=== PATIENT | female | born 1960 | race Caucasian/White ===

== ENCOUNTER 2017-04-12 16:43 | Inpatient (IN) | payer BC ==
[2017-04-12] MEDS ORDERED: ONDANSETRON INJ 4 MG/2 ML VIAL ONE (17:00)
--- NOTE | 2017-04-12 17:08 | ED.PDOC ---
History of Present Illness - General Chief Complaint: Skin/Abrasion/Tear Stated Complaint: left arm redness/swelling Time Seen by Provider: 04/12/17 17:02 Source: patient, RN notes reviewed, Vital Signs reviewed Additional Information: Pt reports sudden onset of fever, left arm redness and swelling today. She had a modified radical mastectomy in 2009 of the left breast and left axillary lymph nodes. She reports a similar episode requiring IV abx for 3 days in 2010. Pt reports N/V she thinks secondary to pain/discomfort. 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 Improving Factors: nothing Worsening Factors: movement Associated Symptoms: fever/chills, nausea/vomiting Allergies/Adverse Reactions: Allergies NO KNOWN ALLERGY Allergy (Verified 04/12/17 17:01) Home Medications: Ambulatory Orders Buspirone HCl 10 mg PO BID 04/12/17 Cholecalciferol [Vitamin D] 5,000 unit PO DAILY 04/12/17 Escitalopram Oxalate [Lexapro] 30 mg PO DAILY 04/12/17 Esomeprazole Magnesium [Nexium] 40 mg PO DAILY 04/12/17 Gabapentin [Neurontin] 600 mg PO TID 04/12/17 Hydrochlorothiazide 12.5 mg PO DAILY 04/12/17 Review of Systems - Review of Systems Constitutional: States: chills, fever EENTM: States: no symptoms reported Respiratory: States: no symptoms reported Cardiology: States: no symptoms reported Gastrointestinal/Abdominal: States: no symptoms reported Genitourinary: States: no symptoms reported Musculoskeletal: States: see HPI - Left arm redness and swelling. Skin: States: see HPI - Left arm redness and swelling Neurological: States: no symptoms reported Endocrine: States: no symptoms reported Hematologic/Lymphatic: States: no symptoms reported Past Medical History (General) - Patient Medical History Hx Stroke: No Hx Congestive Heart Failure: No Hx Diabetes: No Hx Gastroesophageal Reflux: Yes Hx Cancer: Yes - Breast Surgical History: other - Left Modified Radical Mastectomy in 2009 - Vaccination History Hx Influenza Vaccination: Yes - Social History Hx Tobacco Use: No - Female History Patient is a Female of Child Bearing Age (10 -59 yrs old): No Family Medical History - Family History Mother Family History: Unknown Living Status: Unknown Physical Exam - Physical Exam General Appearance: Alert, Anxious, No apparent distress, Obese Eye Exam: bilateral normal Ears, Nose, Throat: hearing grossly normal, normal ENT inspection, normal pharynx Neck: non-tender, full range of motion, supple Respiratory: no respiratory distress Cardiovascular/Chest: regular rate, rhythm Gastrointestinal/Abdominal: non tender, soft Extremity: swelling - and erythema and warmth of left arm with some limited ability to flex at elbow and wrist 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 She was Rx'd Cefepime IV for infection and Fentanyl 50 mcg IV x1 for pain. Also, Pt Rx'd 1 Liter NS and Zofran 4 mg IV x 1. Influenza swab obtained given c/o SAENZ along with fever. If flu positive will add Tamiflu to regimen. Case discussed with Hospitalist JARVIS Rai who accepted admission at 1815. 04/12/17 18:48 Patient states she feels better compared to when she arrived. Starting 1 Liter NS with 40 meq KCL at 250 ml/hr for K of 3.0. Influenza swab pending. Waiting for [facility]patient [facility] to accept patient for transport from ER to [facility]patient [facility]. - Results/Orders Results/Orders: 04/12/17 17:40 BLOOD CULTURE Stat 04/12/17 18:08 fentaNYL CITRATE INJ [Sublimaze Inj] 50 mcg IV Q15MIN PRN 04/12/17 18:41 ED Intent to Admit Routine 04/12/17 18:42 KCl 40Meq/Ns [NS W/ KCL 40 meq/Liter] 1,000 ml IVS .QD Laboratory Results - last 24 hr 04/12/17 04/12/17 04/12/17 17:00 17:00 17:40 WBC 14.7 H RBC 5.04 Hgb 13.9 Hct 41.2 MCV 81.8 MCH 27.6 MCHC 33.7 RDW 14.3 Plt Count 219 MPV 8.4 Absolute Neuts (auto) 13.40 H Absolute Lymphs (auto) 0.90 L Absolute Monos (auto) 0.40 Absolute Eos (auto) 0.00 Absolute Basos (auto) 0.00 Neutrophils % 90.8 H Lymphocytes % 6.3 L Monocytes % 2.6 Eosinophils % 0.1 L Basophils % 0.2 Sodium 139 Potassium 3.0 L Chloride 99 L Carbon Dioxide 28 Anion Gap 15.0 BUN 16 Creatinine 0.70 BUN/Creatinine Ratio 22.9 H Random Glucose 106 H Serum Osmolality 279.1 Lactic Acid 2.3 H Calcium 9.6 Total Bilirubin 0.6 AST 20 ALT 13 Alkaline Phosphatase 69 C-Reactive Protein < 0.5 Serum Total Protein 8.3 H Albumin 4.7 Globulin 3.6 H Albumin/Globulin Ratio 1.3 Flu negative. 04/12/17 04/12/17 16:57 18:01 Temperature 101.8 F H 102.1 F H Pulse Rate [ 82 72 Right Brachial] Respiratory 20 18 Rate Blood Pressure 144/67 127/88 [Right Arm] O2 Sat by Pulse 100 97 Oximetry Departure - Departure Clinical Impression: Left arm cellulitis, Hypokalemia Time of Disposition: 19:15 Disposition: Admit Patient Condition: Fair Departure Forms: ED Discharge - Pt. Copy, Patient Portal Self Enrollment Referrals: Adam Portillo MD [Primary Care Provider] - 1-2 Weeks Home Medications: Ambulatory Orders Buspirone HCl 10 mg PO BID 04/12/17 Cholecalciferol [Vitamin D] 5,000 unit PO DAILY 04/12/17 Escitalopram Oxalate [Lexapro] 30 mg PO DAILY 04/12/17 Esomeprazole Magnesium [Nexium] 40 mg PO DAILY 04/12/17 Gabapentin [Neurontin] 600 mg PO TID 04/12/17 Hydrochlorothiazide 12.5 mg PO DAILY 04/12/17 Decision To Admit - Decistion To Admit Decision to Admit Reason: Medical Nature - Left Arm Cellulitis Decision to Admit Date: 04/12/17 Decision to Admit Time: 18:15
[2017-04-12] MEDS ORDERED: VANCOMYCIN HCL INJ 1,000 MG, VANCOMYCIN HCL INJ 500 MG in SODIUM CHLORIDE 0.9% 250ML 25... IVPB ONE (17:15)
[2017-04-12] MEDS ORDERED: KETOROLAC TROMETHAMINE INJ 30 MG/ML VIAL IV ONE (17:22)
[2017-04-12] MEDS ORDERED: SODIUM CHLORIDE 0.9% 1000ML 1,000 ML IVS ONE ×2 (17:22→23:48)
[2017-04-12] MEDS ORDERED: ONDANSETRON INJ 4 MG/2 ML VIAL IV ONE (17:22)
[2017-04-12] MEDS ORDERED: ACETAMINOPHEN 500 MG TAB PO ONE (17:22)
[2017-04-12] MEDS ORDERED: CEFEPIME 2 GM in SODIUM CHL 0.9% 50ML MIN-BAG+ 50 ML IVPB ONE (17:23)
[2017-04-12] MEDS ORDERED: SODIUM CHL 0.9% 50ML MIN-BAG+ 50 ML IVPB ONE (17:43)
[2017-04-12] MEDS ORDERED: CEFEPIME 2 GM VIAL IVPB ONE (17:44)
[2017-04-12] MEDS ORDERED: fentaNYL CITRATE INJ 50 MCG/ML AMP IV PRN (18:08)
[2017-04-12] MEDS: KCL 40MEQ/NS 1,000 ML IVS PRN (18:51)
--- NOTE | 2017-04-12 19:50 | HP ---
SUPERVISING PHYSICIAN: Michael Archuleta MD CHIEF COMPLAINT: Sudden onset of fever and left arm pain. HISTORY OF PRESENT ILLNESS: This is a 56 year-old female patient who had a sudden onset of fever and left arm redness and swelling today. It came on very sudden, sometime right after lunch. She had a modified radical mastectomy in 2009 of the left breast with many left axillary lymph nodes removed. Her temperature was 102.7 and her white blood cell count was 14.7 in the Emergency Room. She had a similar episode like this in 2010 and had cellulitis of that left arm. In the Emergency Room her flu swab was negative. Her blood pressure was stable. She was given some fluids and blood cultures were done. Cefepime was started. I was called for admission to the hospital. PAST MEDICAL HISTORY: 1. Breast cancer. 2. Cellulitis of the left arm in 2010. 3. Gastroesophageal reflux disease. 4. Depression and anxiety. 5. Osteoarthritis of the hands. 6. Hyperlipidemia. 7. Rosacea. PAST SURGICAL HISTORY: 1. Left radical mastectomy with lymph node removal in 2009. 2. Bilateral cataract surgery. CURRENT MEDICATIONS: Per the EMR and awaiting verification. ALLERGIES: NO KNOWN DRUG ALLERGIES. FAMILY HISTORY: SOCIAL HISTORY: She is . She lives in [place]. She denies any tobacco , ETOH or illicit drug use. REVIEW OF SYSTEMS: GENERAL: Positive for fever, negative for fatigue or weight changes. HEENT: Negative for sinus symptoms, ear pain, vision changes or sore throat. RESPIRATORY: Negative for shortness of breath, wheezing or cough. CARDIOVASCULAR: Negative for chest pain, palpitations or tachycardia. GI: Positive for nausea and vomiting, patient states most likely due to the pain in her arm. Negative for abdominal pain, constipation or diarrhea. : Negative for hematuria, dysuria, polyuria. INTEGUMENT: As per history of present illness. NEURO: Positive for headache, negative for dizziness or seizures. PHYSICAL EXAMINATION: VITAL SIGNS: Temperature 102.1 on admission, now is 99.8. Pulse rate 74, blood pressure 114/63, respiratory rate 20, 02 saturation 96% on room air. GENERAL: This is a 56 year-old female patient who is lying in her hospital bed. She is in no acute distress. HEENT: Normocephalic and atraumatic. Pupils are equal and reactive. Oropharynx is clear. Oral mucous membranes are moist. NECK: Supple without mass. No jugular venous distention. CHEST: Essentially clear to auscultation bilaterally. There is equal rise and fall of the chest with inspiration and expiration. CARDIOVASCULAR: Regular rate and rhythm. ABDOMEN: Soft, nondistended, non-tender. Bowel sounds are positive. EXTREMITIES: There is erythema and edema to her left arm from the top of her left arm extending down to her wrist. The area is warm and somewhat tender to palpation. Her bilateral lower extremities show no cyanosis, clubbing, or edema. NEUROLOGIC: She is alert and oriented x3. LABORATORY: WBC 14.7 with a left shift. Hemoglobin 13.9, hematocrit 41.2. Chemistries show a sodium of 139, potassium 3.0, chloride 99, carbon dioxide 28 , BUN 16, creatinine 0.7, glucose 106. Lactic acid was 2.3. Urinalysis was basically within normal limits. Nasal flu swab was negative. Blood cultures are pending. ESR and CRP are pending. All other labs and films have been reviewed via the EMR. ASSESSMENT: 1. Sepsis most likely related to her cellulitis of the left arm with a temperature of 102.1, WBC of 14.7, lactic acid 2.3 with a negative flu swab. 2. Hypokalemia. 3. Nausea and vomiting most likely secondary to #1. 4. Gastroesophageal reflux disease. 5. History of left breast cancer with a radical mastectomy and lymph node removal. 6. Depression and anxiety. PLAN: We will admit the patient to the hospital. She has been given fluid in the Emergency Room and I will give her IV fluids overnight that include potassium supplementation. We will repeat her labs in the morning. Her lactic acid has been repeated and will follow on that as well as her blood cultures. She will be continued on Cefepime. I have also given her some oral pain medications as well as some Restoril to help with sleep. A PPI has been started for ulcer prophylaxis as well as Lovenox for DVT prophylaxis. I have also ordered Zofran for antiemetic. Otherwise, we will continue to monitor the patient closely and follow as needed. Dr. Archuleta is the collaborating physician and available for consultation. #[id number] [facility]
[2017-04-12] MEDS ORDERED: TEMAZEPAM 15 MG CAP PO PRN (21:13)
[2017-04-12] MEDS ORDERED: ENOXAPARIN SODIUM 40 MG/0.4 ML SYG SUBCU SCH (21:30)
[2017-04-12] MEDS ORDERED: IV SET AND CAP CHANGE INJ INJ SCH (21:30)
[2017-04-12] MEDS ORDERED: PANTOPRAZOLE SODIUM IV 40 MG VIAL IV SCH (21:30)
[2017-04-12] MEDS ORDERED: NON-FORMULARY MEDICATION 1 EA MIS (Gabapentin [Neurontin] 600 MG) PO SCH (22:45)
[2017-04-12] MEDS ORDERED: NON-FORMULARY MEDICATION 1 EA MIS (Buspirone Hcl [Buspirone Hcl] 15 MG) PO SCH (22:45)
[2017-04-12] MEDS ORDERED: GABAPENTIN 300 MG CAP ONE (23:16)
[2017-04-12] MEDS ORDERED: busPIRone HCL 5 MG TAB ONE (23:16)
[2017-04-12] MEDS ORDERED: SODIUM CHLORIDE 0.9% 1000ML 2,000 ML ONE (23:40)
[2017-04-12] MEDS: ONDANSETRON INJ 4 MG/2 ML VIAL IV PRN (23:54)
[2017-04-12] MEDS: HYDROcodone 5MG/APAP 325MG 1 EA TAB PO PRN (23:54)
[2017-04-13] MEDS: HYDROcodone 5MG/APAP 325MG 1 EA TAB PO PRN ×4 (00:39→17:55)
[2017-04-13] MEDS ORDERED: SODIUM CHLORIDE 0.9% 1000ML 1,000 ML IVS ONE ×2 (01:18→06:53)
[2017-04-13] MEDS: KCL 40MEQ/NS 1,000 ML IVS PRN ×2 (06:03→21:39)
[2017-04-13] MEDS: ONDANSETRON INJ 4 MG/2 ML VIAL IV PRN (06:03)
[2017-04-13] MEDS: ACETAMINOPHEN 325 MG TAB PO PRN ×3 (07:17→17:55)
[2017-04-13] MEDS: GABAPENTIN 300 MG CAP PO SCH ×3 (09:58→21:40)
[2017-04-13] MEDS: hydroCHLOROthiazide 25 MG TAB PO SCH (09:58)
[2017-04-13] MEDS: MELOXICAM 7.5 MG TAB PO SCH (09:58)
[2017-04-13] MEDS: busPIRone HCL 5 MG TAB PO SCH ×2 (09:58→21:41)
[2017-04-13] MEDS: ESCITALOPRAM 10 MG TAB PO SCH (09:59)
[2017-04-13] MEDS ORDERED: CEFEPIME 2 GM VIAL IVPB ONE (14:33)
[2017-04-13] MEDS ORDERED: SODIUM CHL 0.9% 50ML MIN-BAG+ 50 ML IVPB ONE (14:33)
--- NOTE | 2017-04-13 15:37 | RAD ---
Procedure: XR ELBOW 3 VIEWS Exam Date: 04/13/2017 3:06 PM CUFF SETTER Ordering Provider: CARLTON BROWN Clinical Indication: cellulitis Comparison: None Findings: Diffuse soft tissue swelling is seen about the elbow joint. No definite acute fracture or focal osseous destruction is present. There is an apparent lucency involving the radial head on the oblique view which may be artifactual as it is not confirmed on additional views. There is also no significant joint effusion. IMPRESSION: No definite displaced fracture. Diffuse soft tissue swelling about the elbow. Electronically signed by: Jason Dupree MD 04/13/2017 3:36 PM CUFF SETTER
[2017-04-13] MEDS: CEFEPIME 2 GM in SODIUM CHL 0.9% 50ML MIN-BAG+ 50 ML IVPB SCH (15:47)
--- NOTE | 2017-04-13 16:12 | PN ---
DATE: 04/13/17 SUPERVISING PHYSICIAN: Michael Archuleta M.D.; SUBJECTIVE: The patient is sitting up in her hospital bed. She has friends at the bedside. She is eating her lunch. Denies any shortness of breath, nausea, vomiting, diarrhea or chest pain. She does complain of headache when her temperature goes up, but her arm is less painful than it was yesterday. The patient continues to have some pain in the left arm and most of her pain is around the elbow area. OBJECTIVE: T max 24 hours is 101.3 and is now 99. Pulse rate 58, blood pressure 89/58, respiratory rate 18, O2 sat is 99% on room air. RESPIRATORY: Clear to auscultation bilaterally. CARDIAC: Regular rate and rhythm. ABDOMEN: Soft, nondistended, non-tender. Bowel sounds are positive. EXTREMITIES: No cyanosis, clubbing or edema. Left arm continues to be erythematous. The erythema has improved since yesterday and the edema is somewhat lessened, but continues to be warm to touch with the elbow area being tender to palpation. NEUROLOGIC: She is awake, alert and oriented times three. LABORATORY: WBCs have improved to 12.4, hemoglobin 11.2, hematocrit 33.4. ESR from last night is 12. Sodium 137, potassium 3.8, chloride 106, carbon dioxide 24, BUN 10, creatinine 0.59, calcium 8.2, C reactive protein from last night of 1.8. Initial lactic acid was 2.3 and after 3 hours was 0.7. Preliminary anaerobic blood culture is negative to date. Aerobic blood culture is pending. All other labs and films have been reviewed via the EMR. ASSESSMENT: 1. Sepsis most likely related to her cellulitis of the left arm with a temperature of 102.1, WBC of 14.7, lactic acid 2.3 with a negative flu swab. 2. Hypokalemia. 3. Nausea and vomiting most likely secondary to #1, showing improvement. 4. Gastroesophageal reflux disease. 5. History of left breast cancer with a radical mastectomy and lymph node removal. 6. Depression and anxiety. PLAN: We will continue present supportive care. At this point she is on Cefipime and clinically she has improved with the exception that her arm erythema has only minimally improved and she continues to have an elevated temperature. I am not going to make any changes to her antibiotic therapy until her blood cultures have been resulted. We may need to change her to another antibiotic or add one at some point if her progress is slow. She did receive approximately 5 to 6 liters of fluids overnight and she continues to be slightly hypotensive, although she is asymptomatic with it. I have ordered an x -ray on her elbow because most of her attention to that left arm pain is concentrated around the elbow when she broke it years ago. She has Tylenol for her elevated temperature. We will continue to monitor closely and follow as needed. #[id number] [facility]
--- NOTE | 2017-04-13 20:06 | PCM.CORE ---
Physician DVT/VTE - Prophylaxis Currently: Patient already on anticoagulation therapy - Nurse DVT Assessment & Total Each Risk Factor Represents 1 Point: Age 41-60 Each Risk Factor is 1 Point: Obesity (BMI >25) DVT Assessment Score: 2 - 2 Moderate Risk Treatments: Early Ambulation *, Sequential Compression Device
[2017-04-13] MEDS ORDERED: PANTOPRAZOLE SODIUM IV 40 MG VIAL IV SCH (21:00)
[2017-04-13] MEDS: SODIUM CHLORIDE 0.9% (FLUSH) 10 ML SYG IV PRN (21:39)
[2017-04-13] MEDS: ENOXAPARIN SODIUM 40 MG/0.4 ML SYG SUBCU SCH (21:41)
[2017-04-13] MEDS: NITROFURANTOIN 50 MG CAP PO SCH (21:41)
[2017-04-13] MEDS: SIMVASTATIN 20 MG TAB PO SCH (21:47)
[2017-04-14] MEDS ORDERED: SODIUM CHL 0.9% 50ML MIN-BAG+ 50 ML IVPB ONE ×3 (02:08→19:52)
[2017-04-14] MEDS ORDERED: CEFEPIME 2 GM VIAL IVPB ONE ×3 (02:08→19:54)
[2017-04-14] MEDS: ACETAMINOPHEN 325 MG TAB PO PRN ×2 (02:35→08:33)
[2017-04-14] MEDS: HYDROcodone 5MG/APAP 325MG 1 EA TAB PO PRN ×3 (02:35→20:10)
[2017-04-14] MEDS: CEFEPIME 2 GM in SODIUM CHL 0.9% 50ML MIN-BAG+ 50 ML IVPB SCH ×2 (02:36→17:11)
[2017-04-14] MEDS: busPIRone HCL 5 MG TAB PO SCH ×2 (08:27→21:30)
[2017-04-14] MEDS: MELOXICAM 7.5 MG TAB PO SCH (08:27)
[2017-04-14] MEDS: ESCITALOPRAM 10 MG TAB PO SCH (08:27)
[2017-04-14] MEDS: hydroCHLOROthiazide 25 MG TAB PO SCH (08:27)
[2017-04-14] MEDS: GABAPENTIN 300 MG CAP PO SCH ×3 (08:28→21:31)
[2017-04-14] MEDS: KCL 40MEQ/NS 1,000 ML IVS PRN (08:33)
[2017-04-14] MEDS ORDERED: VANCOMYCIN PER PHARMACY INJ SCH (11:00)
[2017-04-14] MEDS ORDERED: KETOROLAC TROMETHAMINE INJ 30 MG/ML VIAL IV ONE (11:10)
[2017-04-14] MEDS ORDERED: KETOROLAC TROMETHAMINE INJ 30 MG/ML VIAL IV PRN (11:10)
[2017-04-14] MEDS ORDERED: DOXYCYCLINE HYCLATE CAP 100 MG CAP ONE (11:12)
[2017-04-14] MEDS: DOXYCYCLINE HYCLATE CAP 100 MG CAP PO SCH ×2 (11:15→21:29)
[2017-04-14] MEDS: PANTOPRAZOLE SODIUM TAB 40 MG PO SCH (11:16)
[2017-04-14] MEDS: SODIUM CHLORIDE 0.9% (FLUSH) 10 ML SYG IV SCH ×2 (11:16→21:33)
--- NOTE | 2017-04-14 19:51 | PN ---
DATE: 04/14/17 SUPERVISING PHYSICIAN: Sedrick Stallworth M.D. SUBJECTIVE: The patient is resting in bed with her arm elevated. She notes that her pain is still significant but the swelling has decreased somewhat and also is noted erythema has decreased. She remains afebrile. OBJECTIVE: T max 99.9, pulse 65, blood pressure 104/60, respirations 20, satting 99% on room air. I's and O's show a negative balance of 547 with 553 in , 1100 out. Weight is 87.9 kg. CHEST: Lungs are clear to auscultation bilaterally. HEART: Regular rate and rhythm. ABDOMEN: Obese but soft, non- tender. Positive bowel sounds. EXTREMITIES: Left arm has continued lymphedema although the patient reports it has decreased somewhat. It remains erythematous overlying the elbow. No obvious areas of drainage or consolidations. Pulse distally is strong with capillary refill brisk. NEUROLOGIC: She is alert and oriented times three. LABORATORY: White count is now normalized at 6,500 with hemoglobin 10.1, hematocrit 30.2, platelet count 119,000. Differential continues to show a left shift. Chemistries show normal electrolytes with potassium 3.8, BUN 6, creatinine 0.45, glucose 118. Liver functions showed to be within normal limits. MICROBIOLOGY: Blood cultures remain negative at 48 hours. RADIOLOGY: There were no additional radiographic studies. ASSESSMENT: 1. Sepsis on admission secondary to cellulitis of the left arm, uncertain etiology with a temperature of 102.1, white count of 14,700, increased lactic acid showing improvement with parenteral antibiotics to include Cefepime. 2. History of left breast cancer with a radical mastectomy and lymph node removal with chronic lymphedema. 3. Nausea and vomiting, resolved after IV fluids felt to be secondary to #1. 4. Gastroesophageal reflux disease. 5. Hypokalemia, resolved with IV fluids. 6. Depression and anxiety. 7. Cellulitis of the left arm, uncertain etiology showing improvement with parenteral antibiotics. PLAN: Will continue with antibiotics at this time to include Cefepime with the addition of doxycycline with anticipation of hopefully discharging tomorrow. She continues to show good improvement and has been afebrile. Her blood cultures again are remaining negative at 48 hours. If clinically improved tomorrow, will hopefully discharge on doxycycline and continued cephalosporin coverage. She remains clinically stable and has a good appetite and has been keeping her arm elevated which should be continued. Until discharge, will continue to monitor and treat appropriately. #[id number] [facility]
[2017-04-14] MEDS: NITROFURANTOIN 50 MG CAP PO SCH (21:29)
[2017-04-14] MEDS: ENOXAPARIN SODIUM 40 MG/0.4 ML SYG SUBCU SCH (21:29)
[2017-04-14] MEDS: SIMVASTATIN 20 MG TAB PO SCH (21:30)
[2017-04-15] MEDS: SODIUM CHLORIDE 0.9% (FLUSH) 10 ML SYG IV PRN (03:03)
[2017-04-15] MEDS: CEFEPIME 2 GM in SODIUM CHL 0.9% 50ML MIN-BAG+ 50 ML IVPB SCH (03:03)
[2017-04-15] MEDS: PANTOPRAZOLE SODIUM TAB 40 MG PO SCH (06:31)
[2017-04-15] MEDS: MELOXICAM 7.5 MG TAB PO SCH (08:53)
[2017-04-15] MEDS: hydroCHLOROthiazide 25 MG TAB PO SCH (08:53)
[2017-04-15] MEDS: busPIRone HCL 5 MG TAB PO SCH (08:54)
[2017-04-15] MEDS: DOXYCYCLINE HYCLATE CAP 100 MG CAP PO SCH (08:54)
[2017-04-15] MEDS: GABAPENTIN 300 MG CAP PO SCH (08:54)
[2017-04-15] MEDS: ESCITALOPRAM 10 MG TAB PO SCH (08:54)
[2017-04-15] MEDS: HYDROcodone 5MG/APAP 325MG 1 EA TAB PO PRN (09:03)
[2017-04-15 11:13] VITALS: O2SAT 98
[2017-04-15 11:59] VITALS: BP 128/53; TEMP 97.4
--- NOTE | 2017-04-16 09:49 | DS ---
SUPERVISING PHYSICIAN: Sedrick Stallworth MD DISCHARGE DIAGNOSIS: 1. Sepsis on admission secondary to cellulitis of the left arm, uncertain etiology, with initial temperature of 102.1, white count of 14,700, increased lactic acid, showing improvement with parenteral antibiotics to include cefepime. 2. History of left breast cancer with a radical mastectomy and lymph node removal with chronic lymphedema of the arm. 3. Nausea and vomiting, resolved after IV fluids, felt to be secondary to #1. 4. Gastroesophageal reflux disease. 5. Hypokalemia, resolved with IV fluids. 6. Depression and anxiety. 7. Cellulitis of the left arm, uncertain etiology, showing improvement with parenteral antibiotics. REASON FOR HOSPITALIZATION: Ms. Severino is a 56-year-old, female patient who had a sudden onset of fever and left arm redness and swelling on date of admission, 04/12/17. It came on very suddenly, sometime right after lunch. She had a modified radical mastectomy in 2009 of the left breast with many left axillary lymph nodes removed with chronic lymphedema. Her temperature was 102.7 and her white blood cell count was 14.7 in the Emergency Room. She had a similar episode like this in 2010 and had cellulitis of that left arm. In the Emergency Room, her flu swab was negative. Her blood pressure was stable. She was given some fluids and blood cultures were completed and then started on cefepime. She was admitted in stable condition. LABORATORY: Initial white count 14,700. At discharge, it was 6,500. Hemoglobin at discharge was 10.1, hematocrit 30.2, platelet count 119,000, differential showed a persistent left shift, but some improvement. Initial chemistries on admission showed a low potassium of 3.0 with creatinine 0.7, BUN 16. At discharge after fluids, electrolytes normalized. Potassium was at 3.8, BUN 6, creatinine 0.45. Liver functions all within normal limits. Initial lactic acid was 2.3. After fluids, repeat at 4 hours was down to 0.7. She had a slightly elevated C-reactive protein at 1.8. Urinalysis showed just a moderate amount of blood, otherwise within normal limits. MICROBIOLOGY: She had a set of blood cultures that were negative at 3 days. Rapid flu exam was negative for A and B. RADIOLOGY: X-rays of the left elbow per radiologic interpretation showed no definite displaced fracture, there was noted diffuse soft tissue swelling about the elbow. HOSPITAL COURSE: Ms. Severino was admitted as noted above on 04/12/17 for cellulitis of the left arm. She was initiated on cefepime. She showed good clinical response with decrease of the erythema, but persistent swelling although she does have a history of lymphedema. She did have severe soreness in the elbow, but was improved prior to discharge. She was afebrile 40 hours prior to discharge. Initial T-max on admission was 102.1. Temperature was 97.4. She was transitioned to doxycycline the day before discharge and tolerated this well. It was felt that she had shown good clinical response and was able to continue with outpatient treatment plan. PLAN: Ms. Severino was discharged on 04/15/17 with instructions to followup with Dr. Portillo, her primary care physician scheduled on 04/18/17 at 9:45 AM. She was to resume her home medications as instructed. She was to take new prescriptions which included tramadol and doxycycline as directed. She was encouraged to take a probiotic of choice to prevent any diarrhea associated with her antibiotic usage. She was encouraged to make sure she took her antibiotic with food and to complete the course. She was to return to the hospital or call Dr. Portillo should she have any concerning symptoms. Diet at discharge was regular diet as tolerated. Activities were to be as tolerated. New prescriptions at discharge included: 1. [id number] mg q.4h., #20, for pain. 2. Doxycycline 100 mg twice daily, #20. 3. Probiotic of choice. Condition on discharge was stable and improved. #[id number] [facility]
== END 2017-04-15 10:40 | disposition home or self-care (01) | DRG 872 ==
LOC: ER 16:43 → MS 19:49 → OBSVTOIN 19:49
PROVIDERS: ADMIT Nurse Practitioner Acute Care; ATTEND Nurse Practitioner Family
DX: A41.9 Sepsis, unspecified organism (principal); L03.114 Cellulitis of left upper limb; E87.6 Hypokalemia; K21.9 Gastro-esophageal reflux disease without esophagitis; F41.9 Anxiety disorder, unspecified; F32.9 Major depressive disorder, single episode, unspecified; M19.042 Primary osteoarthritis, left hand; M19.041 Primary osteoarthritis, right hand; E78.5 Hyperlipidemia, unspecified; L71.9 Rosacea, unspecified; R11.2 Nausea with vomiting, unspecified; I97.2 Postmastectomy lymphedema syndrome; E66.9 Obesity, unspecified; R51 Headache; Z85.3 Personal history of malignant neoplasm of breast; Z68.31 Body mass index [BMI] 31.0-31.9, adult

== ENCOUNTER → 2018-12-17 | Outpatient (CLI) | payer BC | LOC: GMA MATASK 10:16 | PROVIDERS: ATTEND Family Medicine | DX: Z00.00 Encounter for general adult medical examination without abnormal findings (principal) ==

== ENCOUNTER → 2019-12-02 | Outpatient (CLI) | payer BC | LOC: GMA MATASK 14:28 | PROVIDERS: ATTEND Family Medicine | DX: R39.15 Urgency of urination (principal) ==

== ENCOUNTER → 2019-12-03 | Outpatient (CLI) | payer BC | LOC: GMA MATASK 12:57 | PROVIDERS: ATTEND Family Medicine | DX: I10 Essential (primary) hypertension (principal); E78.2 Mixed hyperlipidemia ==

== ENCOUNTER → 2020-04-06 | Outpatient (CLI) | payer BC | LOC: GMA MATASK 10:42 | PROVIDERS: ATTEND Family Medicine | DX: D50.9 Iron deficiency anemia, unspecified (principal); I10 Essential (primary) hypertension ==